=== PATIENT | female | born 1985 | race African-American/Black ===

== ENCOUNTER 2022-07-12 04:02 | Day surgery (SDC) | payer OTHER ==
[2022-07-08 11:15] VITALS: BMI 28.3
[2022-07-12] MEDS ORDERED: PROPOFOL 20 ML ONE (12:03)
[2022-07-12] MEDS ORDERED: MIDAZOLAM HCL 2 MG/2 ML SINGLE DOSE VIAL ONE (12:04)
[2022-07-12 12:43] VITALS: RESP 18
[2022-07-12] MEDS ORDERED: ONDANSETRON 4 MG/2 ML VIAL ONE (13:39)
[2022-07-12] MEDS ORDERED: ONDANSETRON 4 MG/2 ML VIAL IVPB ONE (13:45)
[2022-07-12 15:11] VITALS: BP 113/76; PULSE 95; TEMP 98.7
== END 2022-07-12 14:50 | disposition home or self-care (01) ==
LOC: JASU-SURG 04:02
PROVIDERS: ATTEND Urology
PROC: 0TF4XZZ Fragmentation in Left Kidney Pelvis, External Approach (ICD-10-PCS; principal; 2022-07-12 11:00)
DX: N20.0 Calculus of kidney (principal)
CPT/HCPCS: 81025; 82962

== ENCOUNTER 2022-08-23 04:15 | Day surgery (SDC) | payer OTHER ==
[2022-08-20 17:45] VITALS: BMI 28.3
[2022-08-23] MEDS ORDERED: MIDAZOLAM HCL 2 MG/2 ML SINGLE DOSE VIAL ONE (14:40)
[2022-08-23] MEDS ORDERED: PROPOFOL 20 ML ONE (14:40)
[2022-08-23] MEDS ORDERED: LIDOCAINE HCL/PF 2% SDV 5ML VIAL ONE (14:42)
[2022-08-23 15:26] VITALS: RESP 20; TEMP 98.2
[2022-08-23 16:14] VITALS: BP 120/80; PULSE 92
== END 2022-08-23 16:16 | disposition home or self-care (01) ==
LOC: JASU-SURG 04:15
PROVIDERS: ATTEND Urology
PROC: 0TC03ZZ Extirpation of Matter from Right Kidney, Percutaneous Approach (ICD-10-PCS; principal; 2022-08-23 14:00)
DX: N20.0 Calculus of kidney (principal)
CPT/HCPCS: 81025; 82962

== ENCOUNTER 2022-10-29 13:04 | Inpatient (IN) | payer OTHER ==
[2022-10-29 13:15] VITALS: BMI 27.8
[2022-10-29] MEDS ORDERED: SODIUM CHLORIDE 0.9% 500 ML INFUS.BAG IV ONE (14:29)
[2022-10-29] MEDS ORDERED: ONDANSETRON 4 MG/2 ML VIAL IVPUSH ONE ×3 (14:29→19:37)
[2022-10-29] MEDS ORDERED: METOCLOPRAMIDE HCL INJECTION 10 MG/2 ML VIAL IVPUSH ONE (14:29)
[2022-10-29] MEDS ORDERED: morphine CARPU-JECT 2 MG/1 ML DISP.SYRIN IVPUSH ONE (14:30)
[2022-10-29] MEDS ORDERED: METOCLOPRAMIDE HCL INJECTION 10 MG/2 ML VIAL ONE (14:51)
[2022-10-29] MEDS ORDERED: ONDANSETRON 4 MG/2 ML VIAL ONE ×2 (14:51→20:14)
[2022-10-29 15:52] LABS: VENOUS BASE EXCESS 3.5 mmol/L (-2-2); VENOUS O2 SATURATION 49.2 % (70-80); VENOUS PCO2 55.9 mmHg (38-52); VENOUS PH 7.359 (7.310-7.410)
[2022-10-29 16:03] LABS: INR 1.07 (0.83-1.09); PROTHROMBIN TIME (PATIENT) 12.4 SEC (9.7-13.0)
[2022-10-29 16:05] LABS: ACTIVATED PTT 25.6 SECONDS (25.2-36.5)
[2022-10-29 16:10] LABS: BASO % 0.7 % (0-2.0); EOS % 0.2 % (0-4.5); HEMOGLOBIN 16.7 GM/dL (10.7-15.3); LYMPH % 7.7 % (8-40); MCH 30.5 pg (25.7-33.7); MEAN CELL VOLUME 89.7 fl (80-96); MONO % 3.6 % (3.8-10.2); NEUT % 87.8 % (42.8-82.8); PLATELET COUNT 397 10^3/uL (134-434); RBC 5.46 M/mm3 (3.60-5.2); RDW 13.7 % (11.6-15.6); WHITE BLOOD COUNT 10.7 K/mm3 (4.0-10.0)
[2022-10-29 16:14] LABS: POTASSIUM 4.7 mmol/L (3.5-5.1)
[2022-10-29 16:16] LABS: CALCIUM 9.7 mg/dL (8.5-10.1)
[2022-10-29 16:17] LABS: ALBUMIN 3.6 g/dl (3.4-5.0); BLOOD UREA NITROGEN 12.1 mg/dL (7-18); MAGNESIUM 1.9 mg/dL (1.8-2.4)
[2022-10-29 16:20] LABS: CREATININE 0.9 mg/dL (0.55-1.3)
[2022-10-29 16:21] LABS: BILIRUBIN,TOTAL 0.8 mg/dL (0.2-1); TOT PROT 8.3 g/dl (6.4-8.2)
[2022-10-29] MEDS ORDERED: SODIUM CHLORIDE 0.9% 1000 ML INFUS.BAG IV ONE (17:09)
[2022-10-29] MEDS ORDERED: morphine CARPU-JECT 4 MG/1 ML DISP.SYRIN IVPUSH ONE ×2 (19:38→21:49)
[2022-10-29 19:39] LABS: URINE COLOR YELLOW
[2022-10-29 19:40] LABS: URINE APPEARANCE CLEAR; URINE BILIRUBIN NEGATIVE (NEGATIVE); URINE KETONE 80 (NEGATIVE); URINE PROTEIN TRACE (NEGATIVE)
[2022-10-29 19:41] LABS: URINE LEUK ESTERASE NEGATIVE (NEGATIVE); URINE NITRITE NEGATIVE (NEGATIVE)
[2022-10-29] MEDS ORDERED: morphine SULFATE 4 MG/ML VIAL ONE (20:14)
[2022-10-29] MEDS: morphine CARPU-JECT 2 MG/1 ML DISP.SYRIN IM ONE ×2 (22:03→22:04)
[2022-10-30] MEDS ORDERED: INSULIN (NOVOLOG) ASPART 100 UNITS/ML 10ML VIAL SQ ONE (00:50)
[2022-10-30] MEDS ORDERED: SODIUM CHLORIDE 0.9% 500 ML INFUS.BAG IV ONE (01:28)
[2022-10-30] MEDS ORDERED: KETOROLAC TROMETHAMINE 15 MG/ML VIAL IVPUSH ONE (04:43)
[2022-10-30] MEDS ORDERED: METOCLOPRAMIDE HCL INJECTION 10 MG/2 ML VIAL IVPUSH ONE (04:51)
[2022-10-30] MEDS ORDERED: SODIUM CHLORIDE 1,000 ML IV SCH (05:00)
[2022-10-30] MEDS: morphine SULFATE 4 MG/ML VIAL IVPUSH PRN ×3 (07:01→19:57)
[2022-10-30] MEDS: INSULIN SLIDING SCALE (NOVOLOG) 1 VIAL SQ SCH ×4 (07:55→22:46)
[2022-10-30 09:46] LABS: HEMATOCRIT 40.2 % (32.4-45.2); HEMOGLOBIN 13.5 GM/dL (10.7-15.3); MCH 30.1 pg (25.7-33.7); MCHC 33.7 g/dl (32.0-36.0); MEAN CELL VOLUME 89.3 fl (80-96); PLATELET COUNT 340 10^3/uL (134-434); RDW 13.2 % (11.6-15.6)
[2022-10-30] MEDS ORDERED: ENOXAPARIN NA (PORCINE) 40 MG/0.4 ML DISP.SYRIN SQ SCH (10:00)
[2022-10-30 10:11] LABS: POTASSIUM 4.1 mmol/L (3.5-5.1)
[2022-10-30 10:22] LABS: CALCIUM 8.4 mg/dL (8.5-10.1); MAGNESIUM 1.7 mg/dL (1.8-2.4)
[2022-10-30 10:23] LABS: BLOOD UREA NITROGEN 9.9 mg/dL (7-18)
[2022-10-30 10:25] LABS: CREATININE 0.6 mg/dL (0.55-1.3); PHOSPHOROUS 2.9 mg/dL (2.5-4.9)
[2022-10-30 10:27] LABS: BILIRUBIN,TOTAL 0.6 mg/dL (0.2-1)
[2022-10-30 10:28] LABS: ALBUMIN 2.8 g/dl (3.4-5.0); TOT PROT 6.3 g/dl (6.4-8.2)
[2022-10-30] MEDS ORDERED: LISINOPRIL 10 MG TABLET PO SCH (10:30)
[2022-10-30] MEDS: LIDOCAINE 5% TOPICAL PATCH TP SCH (11:10)
[2022-10-30] MEDS: METOCLOPRAMIDE HCL 10 MG TABLET (FP) PO SCH (11:10)
[2022-10-30] MEDS ORDERED: MAGNESIUM OXIDE 400 MG TABLET (FP) PO ONE (11:18)
[2022-10-30] MEDS ORDERED: INSULIN (LEVEMIR) 100 UNITS/ML UNITS SQ ONE (12:24)
[2022-10-30] MEDS: INSULIN (LEVEMIR) 100 UNITS/ML UNITS SQ SCH ×2 (12:38→22:39)
[2022-10-30] MEDS: ONDANSETRON 4 MG/2 ML VIAL IVPUSH PRN (12:56)
[2022-10-30] MEDS ORDERED: INSULIN (NOVOLOG) ASPART 100 UNITS/ML 10ML VIAL ONE ×2 (19:52→22:44)
[2022-10-30] MEDS: POLYETHYLENE GLYCOL (HEALTHYLAX) 3350 17 GM PACKET PO SCH (22:38)
[2022-10-30] MEDS: HEPARIN NA (PORCINE) 5,000 UNITS/ML 1ML VIAL SQ SCH (22:38)
[2022-10-30] MEDS: DOCUSATE SODIUM 100 MG CAPSULE (FP) PO SCH (22:38)
[2022-10-30] MEDS: LIDOCAINE PATCH REMOVAL MC SCH (22:47)
[2022-10-31] MEDS: morphine SULFATE 4 MG/ML VIAL IVPUSH PRN ×2 (02:21→14:36)
[2022-10-31] MEDS: INSULIN SLIDING SCALE (NOVOLOG) 1 VIAL SQ SCH ×4 (06:29→22:39)
[2022-10-31] MEDS: INSULIN (LEVEMIR) 100 UNITS/ML UNITS SQ SCH ×3 (06:37→22:38)
[2022-10-31] MEDS: DOCUSATE SODIUM 100 MG CAPSULE (FP) PO SCH ×3 (06:37→22:38)
[2022-10-31] MEDS ORDERED: INSULIN (LEVEMIR) 100 UNITS/ML UNITS SQ ONE (08:59)
[2022-10-31 09:05] LABS: BASO % 0.8 % (0-2.0); HEMATOCRIT 42.9 % (32.4-45.2); HEMOGLOBIN 14.7 GM/dL (10.7-15.3); LYMPH % 13.2 % (8-40); MCH 30.4 pg (25.7-33.7); MCHC 34.2 g/dl (32.0-36.0); MEAN CELL VOLUME 88.7 fl (80-96); MEAN PLT VOLUME 8.9 fl (7.5-11.1); MONO % 5.7 % (3.8-10.2); NEUT % 79.3 % (42.8-82.8); PLATELET COUNT 326 10^3/uL (134-434); RBC 4.83 M/mm3 (3.60-5.2); RDW 13.3 % (11.6-15.6); WHITE BLOOD COUNT 6.7 K/mm3 (4.0-10.0)
[2022-10-31 09:35] LABS: POTASSIUM 3.5 mmol/L (3.5-5.1)
[2022-10-31 09:43] LABS: CALCIUM 8.4 mg/dL (8.5-10.1)
[2022-10-31 09:44] LABS: BLOOD UREA NITROGEN 6.9 mg/dL (7-18); MAGNESIUM 1.8 mg/dL (1.8-2.4)
[2022-10-31 09:47] LABS: CREATININE 0.6 mg/dL (0.55-1.3)
[2022-10-31 09:48] LABS: BILIRUBIN,TOTAL 0.6 mg/dL (0.2-1); TOT PROT 6.9 g/dl (6.4-8.2)
[2022-10-31] MEDS: POLYETHYLENE GLYCOL (HEALTHYLAX) 3350 17 GM PACKET PO SCH ×2 (10:05→22:38)
[2022-10-31] MEDS: LIDOCAINE 5% TOPICAL PATCH TP SCH (10:05)
[2022-10-31] MEDS: HEPARIN NA (PORCINE) 5,000 UNITS/ML 1ML VIAL SQ SCH ×2 (10:05→22:37)
[2022-10-31] MEDS: LOSARTAN POTASSIUM 50 MG TABLET PO SCH (10:05)
[2022-10-31] MEDS: METOCLOPRAMIDE HCL 10 MG TABLET (FP) PO SCH (10:05)
[2022-10-31] MEDS ORDERED: INSULIN (NOVOLOG) ASPART 100 UNITS/ML 10ML VIAL ONE (11:36)
[2022-10-31] MEDS: ONDANSETRON 4 MG/2 ML VIAL IVPUSH PRN ×2 (11:42→18:00)
[2022-10-31] MEDS ORDERED: metoPROLOL SUCCINATE 25 MG TAB.SR.24H (FP) PO ONE (15:36)
[2022-10-31] MEDS ORDERED: oxyCODONE HCL 5 MG TABLET PO PRN (15:57)
[2022-10-31] MEDS: CEFUROXIME AXETIL 500 MG TABLET PO SCH (22:38)
[2022-10-31] MEDS: KETOROLAC TROMETHAMINE 15 MG/ML VIAL IVPUSH PRN (22:39)
[2022-10-31] MEDS: LIDOCAINE PATCH REMOVAL MC SCH (22:39)
[2022-11-01] MEDS: DOCUSATE SODIUM 100 MG CAPSULE (FP) PO SCH ×3 (06:34→22:56)
[2022-11-01] MEDS: INSULIN SLIDING SCALE (NOVOLOG) 1 VIAL SQ SCH ×4 (06:58→23:03)
[2022-11-01] MEDS ORDERED: INSULIN (NOVOLOG) ASPART 100 UNITS/ML 10ML VIAL ONE ×2 (08:06→17:05)
[2022-11-01] MEDS: ONDANSETRON 4 MG/2 ML VIAL IVPUSH PRN (08:29)
[2022-11-01] MEDS: metoPROLOL SUCCINATE 25 MG TAB.SR.24H (FP) PO SCH ×2 (09:48→09:58)
[2022-11-01] MEDS: CEFUROXIME AXETIL 500 MG TABLET PO SCH ×4 (09:48→22:58)
[2022-11-01] MEDS: LOSARTAN POTASSIUM 50 MG TABLET PO SCH ×2 (09:48→09:58)
[2022-11-01] MEDS: METOCLOPRAMIDE HCL 10 MG TABLET (FP) PO SCH ×2 (09:48→09:59)
[2022-11-01] MEDS: HEPARIN NA (PORCINE) 5,000 UNITS/ML 1ML VIAL SQ SCH ×2 (09:49→23:01)
[2022-11-01] MEDS: INSULIN (LEVEMIR) 100 UNITS/ML UNITS SQ SCH ×2 (09:49→23:02)
[2022-11-01] MEDS: POLYETHYLENE GLYCOL (HEALTHYLAX) 3350 17 GM PACKET PO SCH ×3 (09:49→23:07)
[2022-11-01] MEDS: LIDOCAINE 5% TOPICAL PATCH TP SCH (09:50)
[2022-11-01] MEDS ORDERED: LOSARTAN POTASSIUM 50 MG TABLET PO SCH (10:09)
[2022-11-01 11:37] LABS: EOS % 0.6 % (0-4.5); HEMATOCRIT 42.7 % (32.4-45.2); HEMOGLOBIN 14.5 GM/dL (10.7-15.3); LYMPH % 9.6 % (8-40); MCH 29.8 pg (25.7-33.7); MEAN CELL VOLUME 87.7 fl (80-96); MEAN PLT VOLUME 8.9 fl (7.5-11.1); MONO % 6.4 % (3.8-10.2); NEUT % 82.4 % (42.8-82.8); PLATELET COUNT 375 10^3/uL (134-434); RBC 4.87 M/mm3 (3.60-5.2); RDW 12.9 % (11.6-15.6); WHITE BLOOD COUNT 7.3 K/mm3 (4.0-10.0)
[2022-11-01 12:01] LABS: POTASSIUM 3.5 mmol/L (3.5-5.1)
[2022-11-01 12:03] LABS: BLOOD UREA NITROGEN 9.3 mg/dL (7-18); CALCIUM 8.7 mg/dL (8.5-10.1)
[2022-11-01 12:04] LABS: ALBUMIN 3.1 g/dl (3.4-5.0)
[2022-11-01 12:07] LABS: CREATININE 0.7 mg/dL (0.55-1.3)
[2022-11-01 12:08] LABS: BILIRUBIN,TOTAL 0.7 mg/dL (0.2-1); TOT PROT 6.7 g/dl (6.4-8.2)
[2022-11-01] MEDS ORDERED: metoPROLOL SUCCINATE 25 MG TAB.SR.24H (FP) PO ONE (12:11)
[2022-11-01] MEDS ORDERED: LOSARTAN POTASSIUM 50 MG TABLET PO ONE (12:11)
[2022-11-01] MEDS ORDERED: METOCLOPRAMIDE HCL INJECTION 10 MG/2 ML VIAL IVPUSH PRN (13:32)
[2022-11-01 14:08] VITALS: RESP 20
[2022-11-01] MEDS: KETOROLAC TROMETHAMINE 15 MG/ML VIAL IVPUSH PRN (18:31)
[2022-11-02] MEDS: LIDOCAINE PATCH REMOVAL MC SCH (02:16)
[2022-11-02] MEDS: DOCUSATE SODIUM 100 MG CAPSULE (FP) PO SCH ×2 (06:37→13:50)
[2022-11-02] MEDS: INSULIN (LEVEMIR) 100 UNITS/ML UNITS SQ SCH (06:37)
[2022-11-02 06:38] VITALS: TEMP 98.5
[2022-11-02] MEDS: INSULIN SLIDING SCALE (NOVOLOG) 1 VIAL SQ SCH ×2 (06:42→12:10)
[2022-11-02] MEDS: KETOROLAC TROMETHAMINE 15 MG/ML VIAL IVPUSH PRN (06:51)
[2022-11-02] MEDS: metoPROLOL SUCCINATE 25 MG TAB.SR.24H (FP) PO SCH (10:11)
[2022-11-02] MEDS: CEFUROXIME AXETIL 500 MG TABLET PO SCH (10:11)
[2022-11-02] MEDS: POLYETHYLENE GLYCOL (HEALTHYLAX) 3350 17 GM PACKET PO SCH (10:12)
[2022-11-02] MEDS: HEPARIN NA (PORCINE) 5,000 UNITS/ML 1ML VIAL SQ SCH (10:12)
[2022-11-02] MEDS: LIDOCAINE 5% TOPICAL PATCH TP SCH (10:12)
[2022-11-02 14:51] VITALS: BP 114/86; PULSE 100
== END 2022-11-02 15:40 | disposition home or self-care (01) | DRG 420 ==
LOC: JER 13:04 → JERBED 10-30 01:46 → J8W 10-30 05:03
PROVIDERS: ADMIT Internal Medicine; ATTEND Nurse Practitioner Acute Care
DX: E11.65 Type 2 diabetes mellitus with hyperglycemia (principal); E11.43 Type 2 diabetes mellitus with diabetic autonomic (poly)neuropathy; K31.84 Gastroparesis; J90 Pleural effusion, not elsewhere classified; J98.11 Atelectasis; I10 Essential (primary) hypertension; R11.2 Nausea with vomiting, unspecified; S22.49XS Multiple fractures of ribs, unspecified side, sequela; V89.2XXS Person injured in unspecified motor-vehicle accident, traffic, sequela
CPT/HCPCS: 36415; 70450-TC; 71045-TC-FY; 71275-TC; 74177-TC; 80053; 81003; 82010; 82803; 82962; 83036; 83605; 83690; 83735; 84100; 85025; 85027; 85610; 85730; 87077; 87086; 87186; 93005; 93010; 97116-GP; 97161-GP; 99285-25; J1644; Q9967